=== PATIENT | female | born 1990 | race Caucasian/White ===

== ENCOUNTER 2016-11-18 10:38 | Emergency (ER) | payer MEDICAID ==
[~2016-11-18] VITALS: Ht 157.5 cm; Wt 50.8 kg
[~2016-11-18 10:38] MED LIST: ACHD5005 PO; AGM875T; CPR500T PO; CYCL10TA9; HYDR-2997; HYDR-34 PO; HYDR1TAB PO; IBP800T; MUSCLE; NAPR-243; NF-NIFELIX; NITR-65; NITR-65 PO; NITR100C3 PO; ONDN4T; OXYC-12 PO; PHN100C PO; PREN1TAB39; PRM25T PO; PROP1TAB77 PO; SULF1TAB38 PO; TRAM-21 PO; TRM50T PO
[2016-11-18] MEDS ORDERED: ONDANSETRON 4 MG/2 ML (SDV) Z0FRAN IVP ONE ×2 (11:15→13:45)
[2016-11-18] MEDS ORDERED: NS IV 1000 ML 1,000 ML IV ONE ×2 (11:17→12:23)
[2016-11-18 11:26] LABS: BASOPHILS % (AUTO) 0 % (0-10); EOSINOPHILS % (AUTO) 0 % (0-10); LYMPHOCYTES # (AUTO) 0.8 X 10^3 (1.0-4.0); LYMPHOCYTES % (AUTO) 8 % (12-44); MEAN CORPUSCULAR HEMOGLOBIN 32 PG (25-34); MEAN CORPUSCULAR HGB CONC 36 G/DL (32-36); MEAN CORPUSCULAR VOLUME 89 FL (80-99); MEAN PLATELET VOLUME 9.9 FL (7.4-10.4); MONOCYTES # (AUTO) 0.4 X 10^3 (0.0-1.0); MONOCYTES % (AUTO) 3 % (0-12); NEUTROPHILS # (AUTO) 9.1 X 10^3 (1.8-7.8); NEUTROPHILS % (AUTO) 89 % (42-75); PLATELET COUNT 296 10^3/uL (130-400); RED BLOOD COUNT 4.61 10^6/uL (4.35-5.85); RED CELL DISTRIBUTION WIDTH 13.6 % (10.0-14.5); WHITE BLOOD COUNT 10.3 10^3/uL (4.3-11.0)
[2016-11-18 11:39] LABS: ALANINE AMINOTRANSFERASE 14 U/L (0-55); ALBUMIN 4.6 GM/DL (3.2-4.5); AMYLASE 80 U/L (25-125); ANION GAP 11 MMOL/L (5-14); ASPARTATE AMINO TRANSFERASE 21 U/L (5-34); BILIRUBIN,TOTAL 0.3 MG/DL (0.1-1.0); BLOOD UREA NITROGEN 11 MG/DL (7-18); BUN/CREATININE RATIO 15; CALCIUM 9.1 MG/DL (8.5-10.1); CARBON DIOXIDE 23 MMOL/L (21-32); CHLORIDE 110 MMOL/L (98-107); CREATININE SERUM 0.75 MG/DL (0.60-1.30); GFR ESTIMATED > 60; GLUCOSE 152 MG/DL (70-105); LIPASE 56 U/L (8-78); POTASSIUM 3.3 MMOL/L (3.6-5.0); SODIUM 144 MMOL/L (135-145); TOTAL PROTEIN 7.3 GM/DL (6.4-8.2)
[2016-11-18 11:49] LABS: BAND NEUTROPHILS 0 %; BASOPHILS % (MANUAL) 0 %; EOSINOPHILS % (MANUAL) 1 %; LYMPHOCYTES % (MANUAL) 9 %; NEUTROPHILS % (MANUAL) 85 %
--- NOTE | 2016-11-18 12:05 | ED Abdominal Pain ---
General Chief Complaint: Abdominal/GI Problems Stated Complaint: ABD PAIN Nursing Triage Note: Pt c/o upper abd pain that started upon waking today. Pt also c/o nausea. Sepsis Screen: No Definite Risk History of Present Illness Time Seen By Provider: 11:15 Initial Comments Patient reports vomiting approximately 4 times prior to arrival, symptoms started this morning. She reports her daughter had similar symptoms yesterday. She reports a previous appendectomy, no other previous abdominal surgeries. Last food intake was yesterday evening. Pain is in the right upper quadrant. Timing/Duration: 1-3 Hours Severity/Quality: Moderate Location: RUQ Radiation: No Radiation Activities at Onset: None Modifying Factors: Improves With Lying down, Improves With Resting, Improves With Vomiting Associated Symptoms: Denies Symptoms Allergies and Home Medications Allergies Coded Allergies: Cefaclor (Verified Allergy, Unknown, 04/03/06) Home Medications Ondansetron HCl 8 Mg Tablet, 8 MG PO Q8H PRN for NAUSEA/VOMITING-1ST LINE, #6 Ref 0 Prescribed by: PHIL RAYGOZA on 11/18/16 1315 Phenytoin Sodium 100 Mg Cap, 100 MG PO TID for 30 Days, Ref 1 Prescribed by: RAFI GRIGGS on 03/01/13 2151 Review of Systems Constitutional: no symptoms reported, see HPI EENTM: No Symptoms Reported, See HPI Respiratory: No Symptoms Reported, See HPI Cardiovascular: No Symptoms Reported, See HPI Gastrointestinal: See HPI, Abdominal Pain, Nausea, Poor Appetite, Vomiting Genitourinary: No Symptoms Reported, See HPI Musculoskeletal: no symptoms reported, see HPI, No back pain Skin: no symptoms reported, see HPI Psychiatric/Neurological: No Symptoms Reported, See HPI Endocrine: No Symptoms Reported, See HPI Hematologic/Lymphatic: No Symptoms Reported, See HPI All Other Systems Reviewed Negative Unless Noted: Yes Past Vdlkvzg-Ipgcca-Oqidpl Hx Patient Social History Alcohol Use: Denies Use Recreational Drug Use: Yes (marijuana) Smoking Status: Current Everyday Smoker Type Used: Cigarettes Recent Foreign Travel: No Contact w/Someone Who Travel: No Recent Infectious Disease Expo: No Recent Hopitalizations: No Seasonal Allergies Seasonal Allergies: No Surgeries HX Surgeries: Yes (4 ON LT KIDNEY, LT ARM FX REPAIR) Respiratory Hx Respiratory Disorders: No Cardiovascular Hx Cardiac Disorders: No Neurological Hx Neurological Disorders: Yes Reproductive System Hx Reproductive Disorders: No Sexually Transmitted Disease: No HIV/AIDS: No Female Reproductive Disorders: Ovarian Cyst Genitourinary Hx Genitourinary Disorders: Yes Genitourinary Disorders: Kidney Stones, UTI-Chronic Gastrointestinal Hx Gastrointestinal Disorders: No Musculoskeletal Hx Musculoskeletal Disorders: No Musculoskeletal Disorders: Scoliosis, Chronic Back Pain Endocrine Hx Endocrine Disorders: No HEENT HX ENT Disorders: No Cancer Hx Cancer: No Psychosocial Hx Psychiatric Problems: No Integumentary HX Skin/Integumentary Disorder: No Blood Transfusions Hx Blood Disorders: No Reviewed Nursing Assessment Reviewed/Agree w Nursing PMH: Yes Physical Exam Vital Signs VS - Last 72 Hours, by Label 11/18/16 10:55 Temp 97.2 Pulse 59 Resp 18 B/P (MAP) 135/66 Pulse Ox 97 O2 Delivery Room Air Capillary Refill : Less Than 3 Seconds General Appearance: WD/WN, no apparent distress HEENT: PERRL/EOMI, normal ENT inspection, TMs normal, pharynx normal, other ( oral mucosa pink and moist) Neck: non-tender, full range of motion, supple, normal inspection Respiratory: chest non-tender, lungs clear, normal breath sounds Cardiovascular: normal peripheral pulses, regular rate, rhythm, no edema Gastrointestinal: normal bowel sounds, soft, guarding, No rebound, tenderness ( right upper quadrant, positive Kinney sign), No hepatomegaly, No spleenomegaly Extremities: normal range of motion, non-tender, normal inspection, no calf tenderness, normal capillary refill Back: normal inspection, no CVA tenderness, no vertebral tenderness Neurologic/Psychiatric: no motor/sensory deficits, alert, normal mood/affect, oriented x 3 Skin: normal color, warm/dry, other (skin turgor less than 2 seconds) Lymphatic: no adenopathy Progress/Results/Core Measures Results/Orders Lab Results Laboratory Tests Test 11/18/16 11:08 11/18/16 12:10 Range/Units White Blood Count 10.3 4.3-11.0 10^3/uL Red Blood Count 4.61 4.35-5.85 10^6/uL Hemoglobin 14.6 11.5-16.0 G/DL Hematocrit 41 35-52 % Mean Corpuscular Volume 89 80-99 FL Mean Corpuscular Hemoglobin 32 25-34 PG Mean Corpuscular Hemoglobin Concent 36 32-36 G/DL Red Cell Distribution Width 13.6 10.0-14.5 % Platelet Count 296 130-400 10^3/uL Mean Platelet Volume 9.9 7.4-10.4 FL Neutrophils (%) (Auto) 89 H 42-75 % Lymphocytes (%) (Auto) 8 L 12-44 % Monocytes (%) (Auto) 3 0-12 % Eosinophils (%) (Auto) 0 0-10 % Basophils (%) (Auto) 0 0-10 % Neutrophils # (Auto) 9.1 H 1.8-7.8 X 10^3 Lymphocytes # (Auto) 0.8 L 1.0-4.0 X 10^3 Monocytes # (Auto) 0.4 0.0-1.0 X 10^3 Eosinophils # (Auto) 0.0 0.0-0.3 10^3/uL Basophils # (Auto) 0.0 0.0-0.1 10^3/uL Neutrophils % (Manual) 85 % Lymphocytes % (Manual) 9 % Monocytes % (Manual) 5 % Eosinophils % (Manual) 1 % Basophils % (Manual) 0 % Band Neutrophils 0 % Blood Morphology Comment NORMAL Sodium Level 144 135-145 MMOL/L Potassium Level 3.3 L 3.6-5.0 MMOL/L Chloride Level 110 H 98-107 MMOL/L Carbon Dioxide Level 23 21-32 MMOL/L Anion Gap 11 5-14 MMOL/L Blood Urea Nitrogen 11 7-18 MG/DL Creatinine 0.75 0.60-1.30 MG/DL Estimat Glomerular Filtration Rate > 60 BUN/Creatinine Ratio 15 Glucose Level 152 H 70-105 MG/DL Calcium Level 9.1 8.5-10.1 MG/DL Total Bilirubin 0.3 0.1-1.0 MG/DL Aspartate Amino Transf (AST/SGOT) 21 5-34 U/L Alanine Aminotransferase (ALT/SGPT) 14 0-55 U/L Alkaline Phosphatase 78 40-136 U/L Total Protein 7.3 6.4-8.2 GM/DL Albumin 4.6 H 3.2-4.5 GM/DL Amylase Level 80 25-125 U/L Lipase 56 8-78 U/L Serum Test, Qualitative NEGATIVE NEGATIVE Urine Color YELLOW Urine Clarity CLEAR Urine pH 7 5-9 Urine Specific [place] 1.015 L 1.016-1.022 Urine Protein NEGATIVE NEGATIVE Urine Glucose (UA) 1+ H NEGATIVE Urine Ketones NEGATIVE NEGATIVE Urine Nitrite NEGATIVE NEGATIVE Urine Bilirubin NEGATIVE NEGATIVE Urine Urobilinogen NORMAL NORMAL MG/DL Urine Leukocyte Esterase NEGATIVE NEGATIVE Urine RBC (Auto) NEGATIVE NEGATIVE Urine RBC NONE /HPF Urine WBC RARE /HPF Urine Squamous Epithelial Cells 10-25 H /HPF Urine Crystals NONE /LPF Urine Bacteria NEGATIVE /HPF Urine Casts NONE /LPF Urine Mucus NEGATIVE /LPF Urine Culture Indicated NO Urine Opiates Screen NEGATIVE NEGATIVE Urine Oxycodone Screen POSITIVE H NEGATIVE Urine Methadone Screen NEGATIVE NEGATIVE Urine Propoxyphene Screen NEGATIVE NEGATIVE Urine Barbiturates Screen NEGATIVE NEGATIVE Ur Tricyclic Antidepressants Screen NEGATIVE NEGATIVE Urine Phencyclidine Screen NEGATIVE NEGATIVE Urine Amphetamines Screen NEGATIVE NEGATIVE Urine Methamphetamines Screen NEGATIVE NEGATIVE Urine Benzodiazepines Screen POSITIVE H NEGATIVE Urine Cocaine Screen NEGATIVE NEGATIVE Urine Cannabinoids Screen POSITIVE H NEGATIVE My Orders Orders - PHIL RAYGOZA METAL CUTTER Ondansetron Injection (Zofran Injectio (11/18/16 11:15) Amylase (11/18/16 11:17) Cbc With Automated Diff (11/18/16 11:17) Comprehensive Metabolic Panel (11/18/16 11:17) Drug Screen Stat (Urine) (11/18/16 11:17) Lipase (11/18/16 11:17) Ua Culture If Indicated (11/18/16 11:17) Saline Lock/Iv-Start (11/18/16 11:17) Ns Iv 1000 Ml (Sodium Chloride 0.9%) (11/18/16 11:17) Manual Differential (11/18/16 11:08) Hcg,Qualitative Serum (11/18/16 11:43) Promethazine Injection (Phenergan Injec (11/18/16 12:13) Saline Lock/Iv-Start (11/18/16 12:23) Ns Iv 1000 Ml (Sodium Chloride 0.9%) (11/18/16 12:23) Ondansetron Injection (Zofran Injectio (11/18/16 13:45) Famotidine Injection (Pepcid Injection) (11/18/16 13:35) Medications Given in ED Current Medications Medications Dose Ordered Sig/Mati Route Start Time Stop Time Status Last Admin Dose Admin Ondansetron HCl 4 mg ONCE ONCE IVP 11/18/16 11:15 11/18/16 11:16 DC 11/18/16 11:26 4 MG Ondansetron HCl 4 mg ONCE ONCE IVP 11/18/16 13:45 11/18/16 13:46 DC 11/18/16 13:42 4 MG Sodium Chloride 1,000 ml @ 0 mls/hr Q0M ONCE IV 11/18/16 11:17 11/18/16 11:19 DC 11/18/16 11:26 0 MLS/HR Sodium Chloride 1,000 ml @ 0 mls/hr Q0M ONCE IV 11/18/16 12:23 11/18/16 12:24 DC 11/18/16 12:27 0 MLS/HR Vital Signs/I&O Vital Sign - Last 12Hours 11/18/16 10:55 Temp 97.2 Pulse 59 Resp 18 B/P (MAP) 135/66 Pulse Ox 97 O2 Delivery Room Air Blood Pressure Mean: 89 Progress Note : Time: 11:15 Progress Note Initial evaluation completed, Zofran 4 mg IV and 1 L of normal saline IV. Will reevaluate after labs are completed. 1145 CBC and CMP essentially normal. Serum hCG negative. Awaiting UA and drug screen. 1215 patient continues to complain of nausea, Phenergan 25 mg IV, normal saline 1 L IV. One small episode of vomiting 1230 UA normal, urine drug screen positive for benzodiazepines, cannabinoids and oxycodone. 1300 patient reports slight improvement in her symptoms she is not vomited since the Phenergan. 1345 patient reports nausea has worsened we'll try Zofran 4 mg IV and Pepcid 20 mg IV. 1415 patient reports slight improvement discussed at length with her that cannabinoids can cause cyclical vomiting, she reports smoking marijuana daily. She denied taking oxycodone, discussed that this was present in her urine and she does report that she took one yesterday for the nausea. Patient education the Roxicodone is not indicated for nausea is a pain medicine. 1430 patient reports nausea slightly improved, discussed option of home with Zofran versus abdominal CT. Based on her labs, afebrile and normal vital signs, she would like to return home. Discussed goals for fluid resuscitation to prevent dehydration, she agreed with this treatment plan. Departure Impression Impression: Primary Impression: Nausea and vomiting Qualified Codes: G43.A1 - Cyclical vomiting, intractable Additional Impression: Cannabinoid hyperemesis syndrome Disposition: 01 HOME, SELF-CARE Condition: Improved Departure-Patient Inst. Decision time for Depature: 13:00 Referrals: ELOISE TATE DO (PCP/Family) Primary Care Physician Patient Instructions: Nausea and Vomiting, Adult (DC) Add. Discharge Instructions: Clear liquid diet for 4 hours then advance to bland food as tolerated. Use Zofran every 8 hours as needed for nausea and vomiting. Follow-up with Dr. Tate for continued symptoms. Return to emergency department if abdominal pain worsens, fever, vomiting not relieved with this Zofran, or new complaints. All discharge instructions reviewed with patient and/or family. Voiced understanding. Scripts Ondansetron HCl (Zofran) 8 Mg Tablet 8 MG PO Q8H Y for NAUSEA/VOMITING-1ST LINE, #6 TAB 0 Refills Prov: PHIL RAYGOZA 11/18/16 Copy Copies To 1: ELOISE TATE AMY ARNP Nov 18, 2016 12:05
[2016-11-18] MEDS ORDERED: PROMETHAZINE INJ 25 MG/ML (PHENERGAN) AMP IVP STA (12:13)
[2016-11-18 12:16] LABS: BILIRUBIN,URINE NEGATIVE (NEGATIVE); KETONES,URINE NEGATIVE (NEGATIVE); LEUKOCYTE ESTERASE ,URINE NEGATIVE (NEGATIVE); NITRITE,URINE NEGATIVE (NEGATIVE); PH,URINE 7 (5-9); PROTEIN,URINE NEGATIVE (NEGATIVE); UROBILINOGEN,URINE NORMAL (NORMAL)
[2016-11-18 12:43] LABS: WBC,URINE RARE /HPF
[2016-11-18] MEDS ORDERED: ONDA8TAB6 PO (13:15)
[2016-11-18] MEDS ORDERED: FAMOTIDINE 20MG/2ML IV (PEPCID) IV STA (13:35)
[2016-11-18 14:32] VITALS: BP 120/69
--- OUTSIDE RECORDS SUMMARY | 2016-11-18 18:06 | XMS REPORT | Continuity of Care Document ---
Author Author [facility] Organization [facility] Address Unknown Phone Unavailable Allergies Medications Problems Procedures Results Encounters ACCT No. Visit Date/Time Discharge Status Pt. Type Provider Facility Loc./Unit Complaint [id number] 03/01/2013 20:24:00 2012 21:59:00 DIS Emergency [id number] 12/23/2012 10:50:00 2012 23:59:59 CLS Outpatient [id number] 12/19/2012 08:20:00 2012 10:32:00 DIS Emergency
--- OUTSIDE RECORDS SUMMARY | 2016-11-18 18:06 | XMS REPORT | Continuity of Care Document ---
Author Author [facility] Organization [facility] Address Unknown Phone Unavailable Care Team Providers Care Scenery Builder Name Role Phone Gil Koenig PCP [phone] Source Comments Some departments are not documenting in the electronic medical record. If you do not see the information that you expected, contact Release of Information in the Health Information Management department at [phone] for further assistance in locating additional records.[facility] Active Allergies and Adverse Reactions Allergen Noted Date Severity Reactions Comments Cefaclor 12/15/2006 Medium Allergy recorded in SMS: CECLOR~Reactions: HIVES, SWELLING Current Medications Prescription Sig. Disp. Refills Start End Date Status Date hyoscyamine (LEVSIN/SL) Take 125 mcg by mouth Active 0.125 mg tablet every 4 hours as needed. tamsulosin (FLOMAX) 0.4 Take 0.4 mg by mouth Active mg capsule daily. docusate (COLACE) 100 mg Take 100 mg by mouth Active capsule twice daily. oxyCODONE (ROXICODONE) 5 Take 1-3 Tabs by mouth 60 Tab 0 06/07/19 Active mg tablet every 3 hours as needed 12 for Pain. oxyCODONE SR (OXYCONTIN) Take 1 Tab by mouth every 20 Tab 0 06/07/19 Active 10 mg tablet 12 hours. 12 lidocaine (LIDODERM) 5 % daily. 1 box 0 06/07/19 Active topical patch 12 ciprofloxacin (CIPRO) 250 Take 2 Tabs by mouth 6 Tab 0 06/07/19 Active mg tablet twice daily. 12 senna/docusate Take 1 Tab by mouth twice 60 Tab 0 06/07/19 Active (SENOKOT-S) 8.6/50 mg daily. 12 tablet polyethylene glycol 3350 Take 1 Packet by mouth 12 Each 1 06/07/19 Active (MIRALAX) 17 g packet daily. 12 Active Problems Not on file Social History Tobacco Use Types Packs/Day Years Used Date Current Every Day Smoker Smokeless Tobacco: Never Used Tobacco Cessation: Ready to Quit: No Comments: Alcohol Use Drinks/Week oz/Week Comments No Last Filed Vital Signs Vital Sign Reading Time Taken Blood Pressure 101/61 06/07/2011 8:55 AM DEPLOYMENT ENGINEER Pulse 80 06/07/2011 8:55 AM DEPLOYMENT ENGINEER Temperature 36.7 C (98.1 F) 06/07/2011 8:55 AM DEPLOYMENT ENGINEER Respiratory Rate - - Height 1.575 m (5' 2") 06/04/2011 7:00 PM DEPLOYMENT ENGINEER Weight 48.081 kg (106 lb) 06/04/2011 7:00 PM DEPLOYMENT ENGINEER Body Mass Index 19.38 06/04/2011 7:00 PM DEPLOYMENT ENGINEER Oxygen Saturation 98% 06/07/2011 8:55 AM DEPLOYMENT ENGINEER Plan of Care Health Maintenance Due Date Last Done Comments Physical (Comprehensive) 02/01/1995 Exam Pertussis Vaccine 02/01/1999 Tetanus Vaccine 02/01/2005 Cervical Cancer Screening 02/01/2009 Influenza Vaccine 01/15/2017 Results from Last 3 Months Not on file
== END 2016-11-18 14:32 | disposition home or self-care (01) ==
LOC: EDUNIT# 10:38 → ER 10:41
DX: F12.188 Cannabis abuse with other cannabis-induced disorder (principal); R11.2 Nausea with vomiting, unspecified; F17.210 Nicotine dependence, cigarettes, uncomplicated; Z32.02 Encounter for pregnancy test, result negative
CPT/HCPCS: 36415; 80053; 80306; 81000; 82150; 83690; 84703; 85007; 85027; 96361; 96374; 96375; 96376

== ENCOUNTER 2017-01-21 16:39 | Emergency (ER) | payer MEDICAID ==
[~2017-01-21] VITALS: Ht 157.5 cm; Wt 48.5 kg
[~2017-01-21 16:39] MED LIST changes: +ONDA8TAB6 PO
--- OUTSIDE RECORDS SUMMARY | 2017-01-21 16:45 | XMS REPORT | Clinical Summary ---
Author Author [facility] Organization [facility] Address Unknown Phone Unavailable Care Team Providers Care Principal Process Engineer Name Role Phone PCP Unavailable Source Comments Some departments are not documenting in the electronic medical record. If you do not see the information that you expected, contact Release of Information in the Health Information Management department at [phone] for further assistance in locating additional records.[facility] Allergies Active Allergy Reactions Severity Noted Date Comments Cefaclor Medium 12/15/2006 Allergy recorded in SMS: CECRAMAN~Reactions: HIVES, SWELLING Current Medications Prescription Sig. Disp. [...] Used Tobacco Cessation: Ready to Quit: No Alcohol Use Drinks/Week oz/Week Comments No Sex Assigned at Date Recorded Not on file Last Filed Vital Signs Vital Sign Reading Time Taken Blood Pressure 101/61 06/07/2011 8:55 AM SUPERVISOR PACKING Pulse 80 06/07/2011 8:55 AM SUPERVISOR PACKING Temperature 36.7 C (98.1 F) 06/07/2011 8:55 AM SUPERVISOR PACKING Respiratory Rate - - Oxygen Saturation 98% 06/07/2011 8:55 AM SUPERVISOR PACKING Inhaled Oxygen - - Concentration Weight 48.1 kg (106 lb) 06/04/2011 7:00 PM SUPERVISOR PACKING Height 157.5 cm (5' 2") 06/04/2011 7:00 PM SUPERVISOR PACKING Body Mass Index 19.39 06/04/2011 7:00 PM SUPERVISOR PACKING Plan of Treatment Health Maintenance Due Date Last Done Comments PHYSICAL (COMPREHENSIVE) 02/01/1995 EXAM PERTUSSIS VACCINE 02/01/1999 TETANUS VACCINE 02/01/2005 CERVICAL CANCER SCREENING 02/01/2009 INFLUENZA VACCINE 01/15/2017 Results Not on filefrom Last 3 Months
[2017-01-21] MEDS ORDERED: TETANUS,DIPTH,PERTUSS P/F (BOOSTRIX) 0.5 ML VIAL IM STA (17:50)
[2017-01-21] MEDS ORDERED: LIDOCAINE 1% INJ 20 ML (XYLOCAINE) VIAL INJ STA (17:53)
[2017-01-21] MEDS ORDERED: IBUPROFEN TABLET 200 MG TAB PO STA (18:15)
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
[2017-01-21 18:28] VITALS: BP 123/80
== END 2017-01-21 18:28 | disposition home or self-care (01) ==
LOC: EDUNIT# 16:39 → ER 16:41
DX: Z04.3 Encounter for examination and observation following other accident (principal)
CPT/HCPCS: 12032; 90471; 90715

== ENCOUNTER 2017-01-28 12:56 | Emergency (ER) | payer MEDICAID ==
[~2017-01-28] VITALS: Ht 162.6 cm; Wt 56.7 kg
--- OUTSIDE RECORDS SUMMARY | 2017-01-28 13:02 | XMS REPORT ---
Author Author RADHA Moss [facility] Address Unknown Care Team Providers Care Us Customs And Border Officer Name Role Phone RADHA Moss Unavailable PROBLEMS Unknown Problems ALLERGIES Substance Reaction Event Type Date Status Cefaclor Unknown Drug Allergy Mar, Active SOCIAL HISTORY No smoking Hx information available PLAN OF CARE VITAL SIGNS Blood pressure systolic 104 mmHg 2016-04-15 Blood pressure diastolic 80 mmHg 2016-04-15 MEDICATIONS Medication Instructions Dosage Frequency Start Date End Date Duration Status Tramadol HCl Active Gabapentin Active Amoxicillin 500 MG Orally 4 times a day 1 capsule 6h Mar, Apr, 7 days Active Dover 5-325 MG Orally every 6 hrs 1 tablet as needed 6h Mar,Apr 4 days Active RESULTS No Results PROCEDURES Procedure Date Ordered Related Diagnosis Body Site LTD ORAL EVALUATION - PROBLEM FOCUS Apr 15, 2016 INTRAORL-PERIAPICAL 1 FILM [id number] Apr 15, 2016 IMMUNIZATIONS No Known Immunizations
--- OUTSIDE RECORDS SUMMARY | 2017-01-28 13:02 | XMS REPORT | Clinical Summary ---
Author Author [facility] Organization [facility] Address Unknown Phone Unavailable Care Team Providers Care Mottle Lay Up Operator Name Role Phone PCP Unavailable Source Comments Some departments are not documenting in the electronic medical record. If you do not see the information that you expected, contact Release of Information in the Health Information Management department at [phone] for further assistance in locating additional records.[facility] Allergies Active Allergy Reactions Severity Noted Date Comments Cefaclor Medium 12/15/2006 Allergy recorded in SMS: CONSTANTINE~Reactions: HIVES, SWELLING Current Medications Prescription Sig. Disp. [...] Taken Blood Pressure 101/61 06/07/2011 8:55 AM SEAT COVER MAKER Pulse 80 06/07/2011 8:55 AM SEAT COVER MAKER Temperature 36.7 C (98.1 F) 06/07/2011 8:55 AM SEAT COVER MAKER Respiratory Rate - - Oxygen Saturation 98% 06/07/2011 8:55 AM SEAT COVER MAKER Inhaled Oxygen - - Concentration Weight 48.1 kg (106 lb) 06/04/2011 7:00 PM SEAT COVER MAKER Height 157.5 cm (5' 2") 06/04/2011 7:00 PM SEAT COVER MAKER Body Mass Index 19.39 06/04/2011 7:00 PM SEAT COVER MAKER Plan of Treatment Health Maintenance Due Date Last Done Comments PHYSICAL (COMPREHENSIVE) 02/01/1995 EXAM PERTUSSIS VACCINE 02/01/1999 TETANUS VACCINE 02/01/2005 CERVICAL CANCER SCREENING 02/01/2009 INFLUENZA VACCINE 01/15/2017 Results Not on filefrom Last 3 Months
[2017-01-28 13:15] VITALS: BP 112/70
== END 2017-01-28 13:15 | disposition home or self-care (01) ==
LOC: EDUNIT# 12:56 → ER 12:58
DX: S51.012D Laceration without foreign body of left elbow, subsequent encounter (principal); X58.XXXD Exposure to other specified factors, subsequent encounter

== ENCOUNTER → 2017-04-21 | Outpatient (CLI) | payer MEDICAID ==
--- NOTE | 2017-04-21 14:45 | Diagnostic Imaging Report ---
EXAMINATION: Supine abdomen at 11:26 a.m. INDICATION: Check for IUD. FINDINGS: Reportedly, there is clinical concern regarding the presence of an IUD. On this study, there is no radiopaque foreign body overlying the pelvis that would indicate an IUD. There is no mass or organomegaly appreciated. There is some gas in both the large and small bowel in a nonspecific fashion. There is no sign of bowel obstruction. There is a fair amount of fecal material within the descending and sigmoid colon. There is a small 4 mm calcification overlying the inferior pole of the left kidney. In reviewing the CT exam of 10/19/2011, there was no evidence for nephrolithiasis of either kidney. Even so, this could represent a calculus which has developed in the interval since the prior exam. If further study is desired, then a repeat CT exam will be recommended. IMPRESSION: 1. There is no evidence for radiopaque IUD. 2. There is no acute abnormality of the abdomen or pelvis identified. 3. There is a question of nephrolithiasis on the left. Additional considerations as above. Dictated by: Dictated on workstation # [id number]
== END ==
LOC: RAD 10:56
PROVIDERS: ATTEND Obstetrics & Gynecology Obstetrics
DX: T83.32XA Displacement of intrauterine contraceptive device, initial encounter (principal); N28.89 Other specified disorders of kidney and ureter
CPT/HCPCS: 74000